=== PATIENT | male | born 1955 | race Caucasian/White ===

== ENCOUNTER 2019-04-10 11:50 | Day surgery (SDC) | payer BC, OTHER ==
[2019-04-05 17:09] VITALS: BMI 38.2
[2019-04-10 14:38] VITALS: TEMP 97.8
[2019-04-10 14:39] VITALS: BP 138/75; PULSE 78
--- NOTE | 2019-04-12 15:05 | PATH ---
Surgical Pathology Report Patient Name: DARNELL MONTES [facility]. Rec. #: [id number] /Age/Gender: 1955 (Age: 64) / M Account: [id number] Location: [facility] Taken: 04/10/2019 Received: 04/10/2019 Reported: 04/12/2019 Physicians: Carolina Garner M.D. Specimen(s) Received RECTOSIGMOID COLON, POLYP Clinical History Screening Postoperative diagnosis: Colon polyp, hemorrhoids, diverticulosis Final Diagnosis RECTOSIGMOID COLON, POLYP, BIOPSY: HYPERPLASTIC POLYP. Electronically Signed Carolina Osullivan M.D. Gross Description Received in formalin, labeled "biopsy polyp rectosigmoid colon" is a weller, irregular portion of soft tissue measuring 0.3 cm. in greatest dimension. The specimen is submitted in toto in one cassette. 04/11/201904/11/2019
== END 2019-04-10 14:35 | disposition home or self-care (01) ==
LOC: FASU-ENDO 11:50
PROVIDERS: ATTEND Internal Medicine Gastroenterology
PROC: 0DBN8ZX Excision of Sigmoid Colon, Via Natural or Artificial Opening Endoscopic, Diagnostic (ICD-10-PCS; principal; 2019-04-10 13:51)
DX: Z12.11 Encounter for screening for malignant neoplasm of colon (principal); K63.5 Polyp of colon; K57.30 Diverticulosis of large intestine without perforation or abscess without bleeding; K64.0 First degree hemorrhoids
CPT/HCPCS: 82962; 88305-TC